=== PATIENT | female | born 1970 | race Caucasian/White ===

== ENCOUNTER → 2023-06-09 09:08 | Outpatient (REF) | payer OTHER, SELFPAY | LOC: HWRAD 09:08 | PROVIDERS: ATTENDING PHYSICIAN Surgery; FAMILY PHYSICIAN Family Medicine | DX: Z87.442 Personal history of urinary calculi (principal); N20.0 Calculus of kidney | CPT/HCPCS: 76775 ==

== ENCOUNTER → 2024-04-30 13:54 | Outpatient (REF) | payer OTHER, SELFPAY | LOC: HWRAD 13:54 | PROVIDERS: ATTENDING PHYSICIAN Internal Medicine; FAMILY PHYSICIAN Family Medicine; REFERRING PHYSICIAN Surgery | DX: N20.0 Calculus of kidney (principal) | CPT/HCPCS: 76775 ==